=== PATIENT | female | born 1995 | race Caucasian/White ===

== ENCOUNTER 2021-06-22 13:05 | Outpatient (CLI) | payer BC ==
[~2021-06-22] VITALS: Ht 167.6 cm; Wt 86.2 kg
[~2021-06-22 13:05] MED LIST: ALBUTEROL 90 MCG/ACT 8GM HFA INHALER INH PRN; ALBUTEROL SULFATE 2.5 MG/0.5 ML INH NEB SOLN INH PRN; EPINEPHrine INJ 1 MG/ML 1ML AMP IM PRN; NS 1,000 ML IV SCH; diphenhydrAMINE 50MG/ML VIAL (J1200) IV PRN; methylPREDNISolone 125MG 2ML VIAL IV PRN
[2021-06-22 13:45] VITALS: BP 129/66
[2021-06-22] MEDS ORDERED: BAMLANIVIMAB 700 MG, ETESEVIMAB 1,400 MG in NS 250 ML IV ONE (14:00)
[2021-06-22 14:33] VITALS: BP 111/70
[2021-06-22 15:03] VITALS: BP 129/66
[2021-06-22 15:33] VITALS: BP 111/54
[2021-06-22 16:40] VITALS: BP 117/55
== END 2021-06-22 16:40 | disposition home or self-care (01) ==
LOC: M OPCLI4PR 13:05
PROVIDERS: ATTEND Physician Assistant Medical
DX: U07.1 COVID-19 (principal)

== ENCOUNTER 2021-08-24 18:00 | Emergency (ER) | payer BC ==
[~2021-08-24] VITALS: Ht 167.6 cm; Wt 113.0 kg
[2021-08-24 18:00] VITALS: BP 140/90
[2021-08-24] MEDS ORDERED: LEXA1TAB2 PO (18:31)
[2021-08-25] MEDS ORDERED: METAL LOCK LOOP XX ONE (03:20)
== END 2021-08-24 21:30 | disposition left against medical advice (07) ==
LOC: M ED 18:00
DX: Z53.29 Procedure and treatment not carried out because of patient's decision for other reasons (principal)